=== PATIENT | female | born 1995 | race Hispanic/Latino ===

== ENCOUNTER 2020-11-17 08:34 | Outpatient (CLI) | payer OTHER ==
[2020-11-18 01:54] LABS: SARS-CoV-2 PCR by NAA Not Detected (NotDetected)
== END 2020-11-17 08:35 | disposition home or self-care (01) ==
LOC: CSHLAB 08:34
PROVIDERS: ATTEND Family Medicine
DX: Z20.822 Contact with and (suspected) exposure to COVID-19 (principal)
CPT/HCPCS: U0003; U0005

== ENCOUNTER 2020-11-20 05:04 | Inpatient (IN) | payer MEDICAID, OTHER, SELFPAY ==
[2020-11-20] MEDS ORDERED: Ondansetron PF 4 MG/2 ML Vial IVP PRN ×3 (06:07→11:21)
[2020-11-20] MEDS ORDERED: Famotidine/PF 20 mg/2ml Vial SLOW IVP PRN (06:07)
[2020-11-20] MEDS ORDERED: hydrALAZINE 20 MG/ML VIAL SLOW IVP PRN ×2 (06:07→11:21)
[2020-11-20] MEDS ORDERED: Bicitra 30 ML UDCUP PO PRN (06:07)
[2020-11-20] MEDS ORDERED: Acetaminophen 500 MG TAB PO PRN (06:07)
[2020-11-20] MEDS ORDERED: Promethazine HCl 25 MG/ML VIAL IM PRN ×2 (06:07→09:10)
[2020-11-20] MEDS ORDERED: ceFAZolin 2 GM/Dextrose 50 ML 2 GM in Premix Bag 1 BAG IVPB SCH (06:15)
[2020-11-20] MEDS ORDERED: Azithromycin 500 MG in Sodium Chloride 0.9% 250 ML 250 ML IVPB SCH (06:15)
[2020-11-20 06:47] LABS: Hemoglobin 11.3 g/dL (12.0-15.5); Mean Corpuscular HGB CONC 32.8 g/dL (32.0-36.0); Mean Corpuscular Hemoglobin 26.8 pg (27.0-33.0); Mean Corpuscular Volume 81.8 fl (81.6-98.3); Mean Platelet Volume 9.7 fl (7.4-10.4); Platelet Count 319 10x3/uL (150-450); RBC Distribution Width 14.5 % (11.5-14.5); Red Blood Cell (RBC) Count 4.22 10x6/uL (3.90-5.03); White Blood Cell (WBC) Count 9.5 10x3/uL (3.5-10.5)
[2020-11-20 06:56] VITALS: BMI 27.9
[2020-11-20] MEDS ORDERED: Misoprostol 200 MCG TAB ONE (07:15)
[2020-11-20] MEDS ORDERED: Methylergonovine 0.2 MG/ML VIAL ONE (07:15)
[2020-11-20] MEDS ORDERED: Carboprost 250 MCG/ML AMP ONE (07:15)
[2020-11-20 07:30] LABS: Hep B Surf Ag Non-Reactive S/CO (NonReactive)
[2020-11-20] MEDS ORDERED: Fentanyl 100 MCG/2 ML VIAL ONE (07:32)
[2020-11-20] MEDS ORDERED: PHENYLEPHRINE-NS 100 MCG/ML 10 ML SYRINGE ONE (07:32)
[2020-11-20] MEDS ORDERED: Dexamethasone 4 mg/ml Vial ONE (07:32)
[2020-11-20] MEDS ORDERED: ePHEDrine Sulfate 50 MG/10 ML VIAL ONE (07:32)
[2020-11-20] MEDS ORDERED: Ondansetron PF 4 MG/2 ML Vial ONE (07:32)
[2020-11-20] MEDS ORDERED: Morphine PF 10 MG/10 ML VIAL ONE (07:32)
[2020-11-20] MEDS ORDERED: Ketorolac Tromethamine 30 MG/ML VIAL ONE (07:33)
[2020-11-20] MEDS ORDERED: Oxytocin 10 UNITS/ML VIAL ONE (07:33)
[2020-11-20 07:56] LABS: Syphilis Antibody Nonreactive (Nonreactive); Syphilis Antibody Index 0.02 S/CO (<1.00 Non-Reactive)
[2020-11-20] MEDS ORDERED: Meperidine HCl/PF 25 MG/ML VIAL SLOW IVP PRN (09:10)
[2020-11-20] MEDS ORDERED: Promethazine HCl 25 MG SUPP PR PRN (09:10)
[2020-11-20] MEDS ORDERED: diphenhydrAMINE 50 MG/ML VIAL IVP PRN (09:10)
[2020-11-20] MEDS ORDERED: Hydrocerin (Eucerin) Cream 120 gm Jar TOP PRN (09:10)
[2020-11-20] MEDS ORDERED: Ondansetron HCl/PF 4 MG/2 ML Vial IVP PRN (09:10)
[2020-11-20] MEDS ORDERED: HYDROmorphone 2 MG/ML VIAL SLOW IVP PRN (09:10)
[2020-11-20] MEDS ORDERED: Naloxone HCl 0.4 mg/ml Vial IV PRN (09:10)
[2020-11-20] MEDS ORDERED: Naloxone HCl 0.4 mg/ml Vial IVP PRN ×2 (09:10)
[2020-11-20] MEDS ORDERED: Ketorolac Tromethamine 30 MG/ML VIAL IVP PRN (09:10)
[2020-11-20] MEDS ORDERED: L&D-Morphine 4 MG/ML VIAL SLOW IVP PRN (09:10)
[2020-11-20] MEDS ORDERED: Communication Order-Pharmacy FS SCH (09:15)
[2020-11-20] MEDS ORDERED: diphenhydrAMINE 25 MG CAP PO PRN (11:21)
[2020-11-20] MEDS ORDERED: Boostrix 0.5 ML (Tdap) VIAL IM ONE (11:21)
[2020-11-20] MEDS ORDERED: Acetaminophen 325 MG TAB PO PRN (11:21)
[2020-11-20] MEDS ORDERED: Lanolin Ointment 7 GM TUBE TOP PRN (11:21)
[2020-11-20] MEDS ORDERED: Simethicone Chewable 80 MG TAB PO PRN (11:21)
[2020-11-20] MEDS ORDERED: Docusate 100 MG CAP PO SCH (17:00)
[2020-11-20] MEDS ORDERED: HYDROcodone/Acetaminophen 5/325 mg Tablet PO PRN (21:15)
[2020-11-21] MEDS: Docusate Calcium (SURFAK) 240 MG CAP PO SCH ×3 (06:43→21:36)
[2020-11-21 06:44] LABS: Hemoglobin 10.3 g/dL (12.0-15.5); Mean Corpuscular HGB CONC 32.3 g/dL (32.0-36.0); Mean Corpuscular Hemoglobin 26.1 pg (27.0-33.0); Mean Platelet Volume 9.5 fl (7.4-10.4); Platelet Count 266 10x3/uL (150-450); RBC Distribution Width 14.6 % (11.5-14.5); Red Blood Cell (RBC) Count 3.94 10x6/uL (3.90-5.03); White Blood Cell (WBC) Count 11.7 10x3/uL (3.5-10.5)
[2020-11-21] MEDS: Prenatal Vitamin 1 TAB PO SCH (08:32)
[2020-11-21] MEDS: Ibuprofen 800 MG TAB PO SCH ×2 (13:30→21:36)
[2020-11-21] MEDS: HYDROcodone/Acetaminophen 5/325 mg Tablet PO PRN (16:27)
[2020-11-22] MEDS: Ibuprofen 800 MG TAB PO SCH (05:12)
[2020-11-22] MEDS: Prenatal Vitamin 1 TAB PO SCH (08:37)
[2020-11-22] MEDS: Docusate Calcium (SURFAK) 240 MG CAP PO SCH (08:37)
[2020-11-22] MEDS: HYDROcodone/Acetaminophen 5/325 mg Tablet PO PRN (08:37)
[2020-11-22 08:55] VITALS: BP 100/56; TEMP 98.6
== END 2020-11-22 11:10 | disposition home or self-care (01) | DRG 788 ==
LOC: CSHLD 05:04 → CSHPP 11:20
PROVIDERS: ADMIT Family Medicine; ATTEND Family Medicine
PROC: 10D00Z1 Extraction of Products of Conception, Low, Open Approach (ICD-10-PCS; principal; 2020-11-20)
DX: O34.211 Maternal care for low transverse scar from previous cesarean delivery (principal); Z3A.39 39 weeks gestation of pregnancy; Z37.0 Single live birth; Z20.822 Contact with and (suspected) exposure to COVID-19
CPT/HCPCS: 36415; 51702; 85027; 86780; 86850; 86900; 86901; 87340; J1100; J1200; J1885; J2274; J2405; J3010

== ENCOUNTER 2022-12-06 05:14 | Inpatient (IN) | payer MEDICAID, OTHER ==
[2022-12-05 10:42] LABS: Hematocrit 41.5 % (34.9-44.5); Hemoglobin 14.5 g/dL (12.0-15.5); Platelet Count 200 10x3/uL (150-450)
[2022-12-05 11:06] LABS: Syphilis Antibody Nonreactive (Nonreactive); Syphilis Antibody Index 0.02 S/CO (<1.00 Non-Reactive)
[2022-12-05 11:13] LABS: HBSAg Index 0.16 S/CO (0-0.99); Hep B Surf Ag Non-Reactive S/CO (NonReactive)
[2022-12-06 05:43] VITALS: BMI 28.1
[2022-12-06] MEDS ORDERED: Tranexamic Acid 1,000 MG/10 ML VIAL IVP PRN (06:39)
[2022-12-06] MEDS ORDERED: Promethazine HCl 25 MG/ML VIAL IM PRN ×3 (06:39→10:28)
[2022-12-06] MEDS ORDERED: Misoprostol 200 MCG TAB PR PRN (06:39)
[2022-12-06] MEDS ORDERED: Ondansetron PF 4 MG/2 ML Vial IVP PRN ×3 (06:39→10:28)
[2022-12-06] MEDS ORDERED: Carboprost 250 MCG/ML AMP IM PRN (06:39)
[2022-12-06] MEDS ORDERED: hydrALAZINE 20 MG/ML VIAL SLOW IVP PRN ×2 (06:39→10:28)
[2022-12-06] MEDS ORDERED: Bicitra 30 ML UDCUP PO PRN (06:39)
[2022-12-06] MEDS ORDERED: Methylergonovine 0.2 MG/ML VIAL IM PRN (06:39)
[2022-12-06] MEDS ORDERED: Famotidine/PF 20 mg/2ml Vial SLOW IVP PRN (06:39)
[2022-12-06] MEDS ORDERED: Oxytocin 30 units/NS 500 ML 500 ML IV SCH (06:39)
[2022-12-06] MEDS ORDERED: Diphenoxylate HCl/Atropine Tablet PO PRN (06:39)
[2022-12-06] MEDS ORDERED: Lactated Ringer's 1,000 ML IV SCH (06:39)
[2022-12-06] MEDS ORDERED: CEFAZOLIN 2 GM in Sodium Chloride 0.9% 100 ML IVPB SCH (07:00)
[2022-12-06] MEDS ORDERED: Moisturizing Cream (Eucerin) 113 GM JAR TOP PRN (07:07)
[2022-12-06] MEDS ORDERED: Fentanyl 50 MCG/1 ML VIAL SLOW IVP PRN (07:07)
[2022-12-06] MEDS ORDERED: Naloxone HCl 0.4 mg/ml Vial IVP PRN ×2 (07:07)
[2022-12-06] MEDS ORDERED: Meperidine HCl/PF 25 MG/ML VIAL SLOW IVP PRN (07:07)
[2022-12-06] MEDS ORDERED: diphenhydrAMINE 50 MG/ML VIAL IVP PRN (07:07)
[2022-12-06] MEDS ORDERED: Promethazine HCl 25 MG SUPP PR PRN (07:07)
[2022-12-06] MEDS ORDERED: Naloxone HCl 0.4 mg/ml Vial IV PRN (07:07)
[2022-12-06] MEDS ORDERED: Ondansetron HCl/PF 4 MG/2 ML Vial IVP PRN (07:07)
[2022-12-06] MEDS ORDERED: NO NARCS FOR 12 HRS FS PRN (07:15)
[2022-12-06] MEDS ORDERED: Morphine PF 10 MG/10 ML VIAL ONE (07:18)
[2022-12-06] MEDS ORDERED: Ondansetron PF 4 MG/2 ML Vial ONE (07:19)
[2022-12-06] MEDS ORDERED: Ketorolac Tromethamine 30 MG/ML VIAL ONE (07:19)
[2022-12-06] MEDS ORDERED: PHENYLEPHRINE-NS 100 MCG/ML 10 ML SYRINGE ONE (07:19)
[2022-12-06] MEDS ORDERED: ePHEDrine Sulfate 50 MG/10 ML VIAL ONE (07:19)
[2022-12-06] MEDS ORDERED: Phenylephrine 40 MG/NS 250 ML 250 ML ONE (07:19)
[2022-12-06] MEDS ORDERED: Oxytocin 10 UNITS/ML VIAL ONE (07:19)
[2022-12-06] MEDS ORDERED: Azithromycin 500 MG in Sodium Chloride 0.9% 250 ML 250 ML IVPB SCH (08:00)
[2022-12-06] MEDS ORDERED: Simethicone Chewable 80 MG TAB PO PRN (10:28)
[2022-12-06] MEDS ORDERED: Boostrix 0.5 ML (Tdap) VIAL (>/=7 yrs of age) IM ONE (10:28)
[2022-12-06] MEDS ORDERED: HYDROcodone/Acetaminophen 5/325 mg Tablet PO PRN (10:28)
[2022-12-06] MEDS ORDERED: Lanolin Ointment 7 GM TUBE TOP PRN (10:28)
[2022-12-06] MEDS ORDERED: Bisacodyl 10 MG SUPP PR PRN (10:28)
[2022-12-06] MEDS ORDERED: diphenhydrAMINE 25 MG CAP PO PRN (10:28)
[2022-12-06] MEDS ORDERED: Prenatal Vitamin 1 TAB PO SCH (10:45)
[2022-12-06] MEDS ORDERED: Ferrous Sulfate 325 MG TAB PO SCH (10:45)
[2022-12-06] MEDS ORDERED: Docusate 100 MG CAP PO SCH (10:45)
[2022-12-06] MEDS: Ketorolac Tromethamine 30 MG/ML VIAL IVP SCH ×2 (14:02→20:09)
[2022-12-06] MEDS ORDERED: Ketorolac Tromethamine 30 MG/ML VIAL IVP SCH (14:30)
[2022-12-06] MEDS ORDERED: Ketorolac Tromethamine 30 MG/ML VIAL IVP PRN (14:30)
[2022-12-06] MEDS: Docusate 100 MG CAP PO SCH (20:10)
[2022-12-07] MEDS: Ketorolac Tromethamine 30 MG/ML VIAL IVP SCH ×2 (01:47→08:30)
[2022-12-07] MEDS: Ferrous Sulfate 325 MG TAB PO SCH ×2 (03:37→07:22)
[2022-12-07 04:15] LABS: Hematocrit 34.9 % (34.9-44.5); Mean Corpuscular HGB CONC 34.4 g/dL (32.0-36.0); Mean Corpuscular Hemoglobin 31.5 pg (27.0-33.0); Mean Corpuscular Volume 91.6 fl (81.6-98.3); Platelet Count 162 10x3/uL (150-450); RBC Distribution Width 13.5 % (11.5-14.5); Red Blood Cell (RBC) Count 3.81 10x6/uL (3.90-5.03); White Blood Cell (WBC) Count 8.6 10x3/uL (3.5-10.5)
[2022-12-07] MEDS: Prenatal Vitamin 1 TAB PO SCH (08:31)
[2022-12-07] MEDS: Docusate 100 MG CAP PO SCH ×2 (08:32→21:17)
[2022-12-07] MEDS: HYDROcodone/Acetaminophen 5/325 mg Tablet PO PRN ×2 (12:25→17:31)
[2022-12-07] MEDS: Ibuprofen 800 MG TAB PO SCH ×2 (17:32→21:17)
[2022-12-08] MEDS: Ferrous Sulfate 325 MG TAB PO SCH ×2 (00:44→07:11)
[2022-12-08] MEDS: HYDROcodone/Acetaminophen 5/325 mg Tablet PO PRN (04:28)
[2022-12-08] MEDS: Ibuprofen 800 MG TAB PO SCH ×2 (04:29→13:35)
[2022-12-08] MEDS: Docusate 100 MG CAP PO SCH (07:33)
[2022-12-08] MEDS: Prenatal Vitamin 1 TAB PO SCH (07:33)
[2022-12-08 08:07] VITALS: BP 94/53; TEMP 97.9
== END 2022-12-08 19:00 | disposition home or self-care (01) | DRG 788 ==
LOC: CSHLD 05:14 → CSHPP 10:10
PROVIDERS: ADMIT Family Medicine; ATTEND Family Medicine
PROC: 10D00Z1 Extraction of Products of Conception, Low, Open Approach (ICD-10-PCS; principal; 2022-12-06)
PROC: 3E0P05Z Introduction of Adhesion Barrier into Female Reproductive, Open Approach (ICD-10-PCS; 2022-12-06)
DX: O34.211 Maternal care for low transverse scar from previous cesarean delivery (principal); Z37.0 Single live birth; Z3A.39 39 weeks gestation of pregnancy; O36.5930 Maternal care for other known or suspected poor fetal growth, third trimester, not applicable or unspecified; O24.429 Gestational diabetes mellitus in childbirth, unspecified control
CPT/HCPCS: 36415; 51702; 85014; 85018; 85027; 85049; 86780; 86850; 86900; 86901; 87340; J1885; J2274; J2405; J2590